=== PATIENT | female | born 1950 | race Caucasian/White ===

== ENCOUNTER → 2017-03-30 | Day surgery (SDC) | payer OTHER ==
[~2017-03-30] MED LIST: AMLODIPINE BESY10 MG PO; ASPIRIN EC81 M1 PO; ASPIRIN PO; CHROMIUM400 MCG PO; FENOFIBRATE145 M1 PO; GLIPIZIDE10 MG PO; LANTUS SOL100 UNIT/1 SUBQ; LIPITOR20 MG PO; MAGNESIUM250 M1 PO; MAXIDE PO; METFORMIN PO; METOPROLOL SUCC50 MG PO; NOVOLOG FL100 UNIT/1 SUBQ; POTASSIUM99 M2 PO; ZESTORETIC 20-1 EAC1 PO
--- NOTE | ~2017-03-30 | OR ---
Unit #: [id number] #: [id number] Patient: KIERA DAVIS [id number] [address] [id number] MR#: [id number] NAME: KIERA DAVIS. ROOM: Date of Procedure: 03/30/2017 Admission Date: 03/30/2017 Surgeon: Ace Sheppard M.D. : 1950 Attending Physician: Ace Sheppard M.D. Primary Care Physician: Rosita Mahmood A.P.R.N. OPERATIVE REPORT PREOPERATIVE DIAGNOSIS Positive fecal immunohistochemical test. POSTOPERATIVE DIAGNOSIS Positive fecal immunohistochemical test. PROCEDURE PERFORMED Colonoscopy to cecum. ANESTHESIA Monitored anesthesia care. FINDINGS The patient was found to have a normal colonoscopy to the cecum except for mild internal hemorrhoids. SPECIMENS None. COMPLICATIONS None apparent. CONDITION The patient tolerated the procedure well. INDICATIONS FOR PROCEDURE The patient is a 66-year-old white female, who has never had a colonoscopy. She had a positive fecal immunohistochemical test for screening. She presents at this time for evaluation by upper and lower endoscopy. The patient states, however, that she does not want upper endoscopy performed and realizes there is a risk of delay in diagnosis of any abnormality. DESCRIPTION OF PROCEDURE After obtaining informed consent, the patient was brought to the endoscopy suite and after adequate monitored anesthesia care, had the colonoscope placed through the anus and slowly advanced to the level of the cecum without difficulty with the lumen always in view. The cecum was normal as was the ileocecal valve. The ascending colon was normal as was the hepatic flexure, transverse colon, splenic flexure, descending colon, sigmoid colon, and rectum. No diverticula were seen. On retroflexing in Unit #: [id number] #: [id number] Patient: KIERA DAVIS the rectum to the anorectal junction, the patient was found to have some mild internal hemorrhoids. The scope was removed without difficulty. The patient tolerated the procedure well and went from the endoscopy suite to the recovery area in stable condition. RECOMMENDATIONS High-fiber diet, lots of liquids, tucks or wipes p.r.n. Follow up p.r.n. Dictated by... Cyndi Mueller/bev TD: 03/30/2017 10:58 JOB #: [id number] CC: [facility] Margaret Crouch M.D. OPERATIVE REPORT Page 1 of 1 X Ace Sheppard MD X PROCEDURE OPERATIVE NOTE
== END | disposition home or self-care (01) ==
LOC: COPS 07:44
DX: K64.8 Other hemorrhoids (principal); R19.5 Other fecal abnormalities; E11.9 Type 2 diabetes mellitus without complications; I10 Essential (primary) hypertension; E78.5 Hyperlipidemia, unspecified; M19.90 Unspecified osteoarthritis, unspecified site; Z79.84 Long term (current) use of oral hypoglycemic drugs; Z79.82 Long term (current) use of aspirin; Z79.899 Other long term (current) drug therapy; Z98.84 Bariatric surgery status; Z98.41 Cataract extraction status, right eye; Z98.42 Cataract extraction status, left eye; Z98.890 Other specified postprocedural states
CPT/HCPCS: 82947; J2250